=== PATIENT | female | born 1990 | race Caucasian/White ===

== ENCOUNTER 2020-06-22 11:43 | Emergency (ER) | payer MEDICAID ==
[~2020-06-22] VITALS: Ht 162.6 cm; Wt 47.6 kg
[2020-06-22 11:55] VITALS: BP 136/80
== END 2020-06-22 13:04 | disposition home or self-care (01) ==
LOC: ER 11:43
DX: S96.912A Strain of unspecified muscle and tendon at ankle and foot level, left foot, initial encounter (principal); X50.1XXA Overexertion from prolonged static or awkward postures, initial encounter; Y93.89 Activity, other specified; Y92.89 Other specified places as the place of occurrence of the external cause; Y99.8 Other external cause status
CPT/HCPCS: 73610; 73630

== ENCOUNTER 2021-01-10 18:44 | Emergency (ER) | payer MEDICAID ==
[~2021-01-10] VITALS: Ht 162.6 cm; Wt 49.9 kg
[2021-01-10 19:34] LABS: Basophils # (auto) 0.1 10 ^3/uL (0-0.2); Basophils % (auto) 0.4 % (0.0-2.0); Eosinophils # (auto) 0.1 10 ^3/uL (0-0.8); Eosinophils % (auto) 0.7 % (0.0-7.0); Hematocrit 45.2 % (36.0-46.0); Hemoglobin 15.6 g/dL (12.2-16.2); Lymphocytes # (auto) 4.3 10 ^3/uL (0.4-5.4); Lymphocytes % (auto) 31.3 % (10.0-50.0); Mean Corpuscular Hemoglobin 29.8 pg (28.0-32.0); Mean Corpuscular Hgb Conc. 34.6 g/dL (32.0-36.0); Monocytes # (auto) 0.9 10 ^3/uL (0-1.3); Monocytes % (auto) 6.4 % (0.0-12.0); Neutrophils # (auto) 8.5 10 ^3/uL (1.6-8.6); Neutrophils % (auto) 61.2 % (37.0-80.0); Nucleated Red Blood Cells % 0.2 %; Platelet Count (auto) 432 10^3/uL (140-450); Red Blood Cells 5.25 10^6/uL (4.0-5.20); Red Cell Distribution Width 13.3 % (11.8-14.3); White Blood Cell 13.9 10^3/uL (4.4-10.8)
[2021-01-10 19:44] LABS: Albumin 4.4 g/dL (3.4-5.0); Anion Gap 8 (5-15); Blood Urea Nitrogen 11 mg/dL (7-18); Calcium 9.6 mg/dL (8.5-10.1); Carbon Dioxide 24 mmol/L (21-32); Chloride 106 mmol/L (98-107); Glucose 87 mg/dL (74-106); Sodium 138 mmol/L (136-145)
[2021-01-10 19:49] LABS: Alkaline Phosphatase 116 U/L (45-117); BUN/Creatinine Ratio 15.7; GFR African American 126 mL/min; GFR Non-African American 104 mL/min
[2021-01-10 19:50] LABS: Alanine Aminotransferase 65 U/L (13-56); Aspartate Aminotransferase 36 U/L (15-37); Bilirubin, Total 0.2 mg/dL (0.2-1.0); Total Protein 9.5 g/dL (6.4-8.2)
[2021-01-11] MEDS ORDERED: IBUPROFEN 600 MG TAB PO ONE (01:15)
[2021-01-11 04:54] VITALS: BP 107/57
== END 2021-01-11 05:04 | disposition home or self-care (01) ==
LOC: ER 18:48
DX: R07.89 Other chest pain (principal)
CPT/HCPCS: 36415; 80053; 84484; 85025; 93005

== ENCOUNTER → 2021-12-11 | Emergency (ER) | payer MEDICAID ==
[~2021-12-11] VITALS: Ht 162.6 cm; Wt 59.0 kg
[~2021-12-11] MED LIST: SODIUM CHLORIDE 0.9% 1,000 ML IV ONE
[2021-12-11 20:01] LABS: Urine WBC None Seen /hpf (0 - 5)
[2021-12-11 20:09] LABS: Urine Bacteria NONE SEEN /hpf (None Seen); Urine Blood Negative /uL (Negative); Urine Specific Gravity 1.005 (1.001-1.035)
[2021-12-11 20:14] LABS: Anion Gap 10 (5-15); BUN/Creatinine Ratio 15.5; Blood Urea Nitrogen 13 mg/dL (7-18); Calcium 9.3 mg/dL (8.5-10.1); Carbon Dioxide 22 mmol/L (21-32); Chloride 110 mmol/L (98-107); GFR African American 101 mL/min; GFR Non-African American 84 mL/min; Glucose 92 mg/dL (74-106); Sodium 142 mmol/L (136-145)
[2021-12-11 20:17] LABS: Alanine Aminotransferase 35 U/L (13-56); Alkaline Phosphatase 110 U/L (45-117); Aspartate Aminotransferase 30 U/L (15-37); Bilirubin, Total 0.2 mg/dL (0.2-1.0); Total Protein 8.3 g/dL (6.4-8.2)
[2021-12-11 20:29] LABS: Basophils # (auto) 0.1 10 ^3/uL (0-0.2); Basophils % (auto) 0.5 % (0.0-2.0); Eosinophils # (auto) 0 10 ^3/uL (0-0.8); Eosinophils % (auto) 0.2 % (0.0-7.0); Hematocrit 42.4 % (36.0-46.0); Hemoglobin 14.3 g/dL (12.2-16.2); Lymphocytes # (auto) 3.5 10 ^3/uL (0.4-5.4); Lymphocytes % (auto) 25.4 % (10.0-50.0); Mean Corpuscular Hemoglobin 28.8 pg (28.0-32.0); Mean Corpuscular Hgb Conc. 33.7 g/dL (32.0-36.0); Mean Corpuscular Volume 85.5 fL (80.0-100.0); Monocytes # (auto) 0.7 10 ^3/uL (0-1.3); Monocytes % (auto) 5.4 % (0.0-12.0); Neutrophils # (auto) 9.4 10 ^3/uL (1.6-8.6); Neutrophils % (auto) 68.5 % (37.0-80.0); Nucleated Red Blood Cells % 0.1 %; Red Blood Cells 4.96 10^6/uL (4.0-5.20); Red Cell Distribution Width 12.8 % (11.8-14.3); White Blood Cell 13.7 10^3/uL (4.4-10.8)
[2021-12-11 22:01] VITALS: BP 109/64
== END | disposition home or self-care (01) ==
LOC: EDUNIT# 17:39 → EDBD 17:39 → ER 17:39
DX: E86.0 Dehydration (principal); M79.10 Myalgia, unspecified site; Z88.8 Allergy status to other drugs, medicaments and biological substances; Z91.018 Allergy to other foods
CPT/HCPCS: 36415; 70450; 80053; 81001; 85025

== ENCOUNTER 2021-12-23 19:19 | Emergency (ER) | payer MEDICAID ==
[~2021-12-23] VITALS: Ht 165.1 cm; Wt 47.6 kg
[2021-12-23 19:20] VITALS: BP 132/76
[2021-12-23 20:39] LABS: Urine Bacteria NONE SEEN /hpf (None Seen); Urine Blood Negative /uL (Negative); Urine Specific Gravity 1.007 (1.001-1.035); Urine WBC <1 /hpf (0 - 5)
== END 2021-12-24 02:34 | disposition left against medical advice (07) ==
LOC: ER 19:19 → EDBD 19:19 → ER 12-24 02:34
DX: M62.831 Muscle spasm of calf (principal)
CPT/HCPCS: 81001; 81025

== ENCOUNTER 2022-01-18 19:13 | Emergency (ER) | payer MEDICAID ==
[~2022-01-18] VITALS: Ht 162.6 cm; Wt 54.4 kg
[2022-01-18 19:48] VITALS: BP 128/71
[2022-01-18] MEDS ORDERED: COROSUS EACH EAR (19:53)
[2022-01-18] MEDS ORDERED: NEOMYCIN-POLYM-HC 1% OTIC(EAR) SOLN 10ML EACH EAR ONE (20:00)
== END 2022-01-19 02:24 | disposition left against medical advice (07) ==
LOC: ER 19:13
DX: H60.91 Unspecified otitis externa, right ear (principal); H57.13 Ocular pain, bilateral; J45.909 Unspecified asthma, uncomplicated; Z90.49 Acquired absence of other specified parts of digestive tract; Z79.899 Other long term (current) drug therapy; Z88.8 Allergy status to other drugs, medicaments and biological substances

== ENCOUNTER 2022-04-05 17:02 | Emergency (ER) | payer MEDICAID ==
[~2022-04-05] VITALS: Ht 162.6 cm; Wt 50.0 kg
[~2022-04-05 17:02] MED LIST changes: +COROSUS EACH EAR; -SODIUM CHLORIDE 0.9% 1,000 ML IV ONE
[2022-04-05 19:42] VITALS: BP 129/79
[2022-04-05] MEDS ORDERED: IBUP600T27 PO (22:44)
[2022-04-05] MEDS ORDERED: IBUP800T26 PO (22:59)
== END 2022-04-05 22:58 | disposition home or self-care (01) ==
LOC: ER 17:05
DX: S90.32XA Contusion of left foot, initial encounter (principal); J45.909 Unspecified asthma, uncomplicated; Z90.49 Acquired absence of other specified parts of digestive tract; Z79.899 Other long term (current) drug therapy; Z88.8 Allergy status to other drugs, medicaments and biological substances; Z91.018 Allergy to other foods; W18.39XA Other fall on same level, initial encounter; Y93.89 Activity, other specified; Y92.89 Other specified places as the place of occurrence of the external cause; Y99.8 Other external cause status
CPT/HCPCS: 73630

== ENCOUNTER 2022-04-20 13:55 | Emergency (ER) | payer MEDICAID ==
[~2022-04-20] VITALS: Ht 162.6 cm; Wt 55.0 kg
[~2022-04-20 13:55] MED LIST changes: +IBUP800T26 PO
[2022-04-20 14:59] VITALS: BP 154/64
[2022-04-20] MEDS ORDERED: AZIT250T8 PO (16:11)
[2022-04-20] MEDS ORDERED: PROM1SOL4 PO (16:11)
== END 2022-04-20 16:19 | disposition home or self-care (01) ==
LOC: EDBD 13:55 → ER 13:55
DX: J02.9 Acute pharyngitis, unspecified (principal); Z20.822 Contact with and (suspected) exposure to COVID-19
CPT/HCPCS: 36415

== ENCOUNTER 2022-11-18 10:03 | Emergency (ER) | payer MEDICAID ==
[~2022-11-18] VITALS: Ht 162.6 cm; Wt 54.5 kg
[~2022-11-18 10:03] MED LIST changes: +AZIT250T8 PO; +PROM1SOL4 PO
[2022-11-18 11:11] LABS: Basophils # (auto) 0.1 10 ^3/uL (0-0.2); Eosinophils # (auto) 0.2 10 ^3/uL (0-0.8); Eosinophils % (auto) 0.9 % (0.0-7.0)
[2022-11-18 11:13] LABS: Basophils % (auto) 0.3 % (0.0-2.0); Hemoglobin 13.9 g/dL (12.2-16.2); Lymphocytes # (auto) 3.6 10 ^3/uL (0.4-5.4); Lymphocytes % (auto) 18.8 % (10.0-50.0); Mean Corpuscular Hemoglobin 28.8 pg (28.0-32.0); Mean Corpuscular Hgb Conc. 33.1 g/dL (32.0-36.0); Mean Corpuscular Volume 86.8 fL (80.0-100.0); Monocytes # (auto) 1.4 10 ^3/uL (0-1.3); Monocytes % (auto) 7.5 % (0.0-12.0); Neutrophils # (auto) 13.8 10 ^3/uL (1.6-8.6); Neutrophils % (auto) 72.5 % (37.0-80.0); Nucleated Red Blood Cells % 0.1 %; Red Blood Cells 4.84 10^6/uL (4.0-5.20); Red Cell Distribution Width 13.3 % (11.8-14.3)
[2022-11-18] MEDS ORDERED: ACETAMINOPHEN 325 MG TAB PO ONE (11:15)
[2022-11-18] MEDS ORDERED: DexAMETHasone 4 MG TAB PO ONE (11:15)
[2022-11-18] MEDS ORDERED: IPRATROPIUM BROM 0.5 MG/2.5ML INH SOL NEB ONE (11:15)
[2022-11-18] MEDS ORDERED: ALBUTEROL SULF 2.5 MG/0.5ML(0.5%) NEB SOLN NEB ONE (11:15)
[2022-11-18 11:22] LABS: Potassium 3.4 mmol/L (3.5-5.1)
[2022-11-18 11:30] LABS: Albumin 3.8 g/dL (3.4-5.0); Bilirubin, Total 0.4 mg/dL (0.2-1.0); Calcium 9.5 mg/dL (8.5-10.1); Total Protein 8.1 g/dL (6.4-8.2)
[2022-11-18 14:15] LABS: Urine Bacteria NONE SEEN /hpf (None Seen); Urine Blood Negative /uL (Negative); Urine Specific Gravity 1.011 (1.001-1.035); Urine WBC <1 /hpf (0 - 5)
[2022-11-18 14:24] VITALS: BP 136/59
== END 2022-11-18 14:32 | disposition home or self-care (01) ==
LOC: ER 10:03
DX: B34.9 Viral infection, unspecified (principal); D72.829 Elevated white blood cell count, unspecified; D75.839 Thrombocytosis, unspecified; R06.02 Shortness of breath; R07.89 Other chest pain; J45.909 Unspecified asthma, uncomplicated; Z90.49 Acquired absence of other specified parts of digestive tract
CPT/HCPCS: 36415; 71045; 80053; 81001; 84484; 85025; 93005; 94640; 99285; J7644

== ENCOUNTER 2022-12-20 17:36 | Emergency (ER) | payer MEDICAID ==
[~2022-12-20] VITALS: Ht 162.6 cm; Wt 54.5 kg
[2022-12-20] MEDS ORDERED: traMADol HCL 50 MG TAB PO ONE (18:00)
[2022-12-20] MEDS ORDERED: BACDST PO (20:23)
[2022-12-21 00:15] VITALS: BP 133/73
== END 2022-12-20 20:23 | disposition home or self-care (01) ==
LOC: ER 17:36 → EDBD 17:36 → EDUNIT# 17:36 → ER 20:23
DX: L03.115 Cellulitis of right lower limb (principal); J45.909 Unspecified asthma, uncomplicated; Z88.1 Allergy status to other antibiotic agents
CPT/HCPCS: 93971

== ENCOUNTER 2023-01-11 16:26 | Emergency (ER) | payer MEDICAID ==
[~2023-01-11] VITALS: Ht 167.6 cm; Wt 60.0 kg
[~2023-01-11 16:26] MED LIST changes: +AZIT-81 PO; -AZIT250T8 PO; +BACDST PO; +IBUP-1455 PO; -IBUP800T26 PO
[2023-01-11 19:21] VITALS: BP 119/64
== END 2023-01-11 21:12 | disposition home or self-care (01) ==
LOC: ER 16:26 → EDBD 16:26 → ER 21:12
DX: M79.661 Pain in right lower leg (principal); F41.9 Anxiety disorder, unspecified; J45.909 Unspecified asthma, uncomplicated; Z90.89 Acquired absence of other organs; Z88.8 Allergy status to other drugs, medicaments and biological substances; Z88.7 Allergy status to serum and vaccine

== ENCOUNTER 2023-09-02 14:50 | Emergency (ER) | payer MEDICAID ==
[~2023-09-02] VITALS: Ht 162.6 cm; Wt 52.0 kg
[2023-09-02 15:32] LABS: Urine Epithelial Cast None Seen /hpf (<5)
[2023-09-02 15:47] LABS: Urine Bacteria NONE SEEN /hpf (None Seen); Urine Blood Negative /uL (Negative); Urine Clarity Clear (Clear); Urine Color Colorless (Yellow); Urine Protein, UAD Negative (Negative); Urine Specific Gravity 1.004 (1.001-1.035); Urine Urobilinogen Normal (Negative); Urine WBC <1 /hpf (0 - 5); Urine pH 6.5 (5.0-8.0)
[2023-09-02 16:08] LABS: Basophils # (auto) 0.1 10 ^3/uL (0-0.2); Basophils % (auto) 1.2 % (0.0-2.0); Eosinophils # (auto) 0.2 10 ^3/uL (0-0.8); Eosinophils % (auto) 1.5 % (0.0-7.0); Hematocrit 44.4 % (36.0-46.0); Hemoglobin 14.8 g/dL (12.2-16.2); Mean Corpuscular Hemoglobin 28.8 pg (28.0-32.0); Mean Corpuscular Hgb Conc. 33.5 g/dL (32.0-36.0); Mean Corpuscular Volume 86.1 fL (80.0-100.0); Monocytes # (auto) 0.7 10 ^3/uL (0-1.3); Monocytes % (auto) 5.9 % (0.0-12.0); Neutrophils # (auto) 7.1 10 ^3/uL (1.6-8.6); Neutrophils % (auto) 58.4 % (37.0-80.0); Nucleated Red Blood Cells % 0.2 %; Red Blood Cells 5.15 10^6/uL (4.0-5.20); White Blood Cell 12.2 10^3/uL (4.4-10.8)
[2023-09-02 16:23] LABS: Alanine Aminotransferase 34 U/L (7-40); Albumin 4.8 g/dL (3.2-4.8); Alkaline Phosphatase 97 U/L (46-116); Anion Gap 7 (5-15); Aspartate Aminotransferase 26 U/L (13-40); BUN/Creatinine Ratio 12.5 (10.0-20.0); Bilirubin, Total 0.2 mg/dL (0.2-1.0); Blood Urea Nitrogen 9 mg/dL (9-23); Calcium 9.6 mg/dL (8.7-10.4); Carbon Dioxide 25 mmol/L (20-30); Chloride 108 mmol/L (98-107); Glucose 86 mg/dL (74-106); Lipase 48 U/L (12-53); Potassium 4.2 mmol/L (3.5-5.1); Sodium 140 mmol/L (136-145); Total Protein 8.2 g/dL (5.7-8.2)
[2023-09-02 17:40] VITALS: BP 110/50; PULSE 80; RESP 18; TEMP 98.6; O2SAT 98
== END 2023-09-02 17:42 | disposition home or self-care (01) ==
LOC: ER 14:50
DX: R10.84 Generalized abdominal pain (principal); R11.0 Nausea; J45.909 Unspecified asthma, uncomplicated; Z90.49 Acquired absence of other specified parts of digestive tract; Z79.2 Long term (current) use of antibiotics; Z79.899 Other long term (current) drug therapy; Z88.8 Allergy status to other drugs, medicaments and biological substances
CPT/HCPCS: 36415; 74176; 80053; 81001; 83690; 85025

== ENCOUNTER 2023-10-08 16:15 | Emergency (ER) | payer MEDICAID ==
[~2023-10-08] VITALS: Ht 154.9 cm; Wt 54.0 kg
[2023-10-08] MEDS: IBUPROFEN 800 MG TAB PO ONE (20:27)
[2023-10-08 20:35] VITALS: BP 114/68; PULSE 77; RESP 16; TEMP 98.2; O2SAT 99
== END 2023-10-08 20:35 | disposition home or self-care (01) ==
LOC: ER 16:15
DX: M26.621 Arthralgia of right temporomandibular joint (principal); R07.89 Other chest pain; J45.909 Unspecified asthma, uncomplicated; Z90.49 Acquired absence of other specified parts of digestive tract; Z79.1 Long term (current) use of non-steroidal anti-inflammatories (NSAID); Z79.2 Long term (current) use of antibiotics; Z79.899 Other long term (current) drug therapy; Z88.8 Allergy status to other drugs, medicaments and biological substances
CPT/HCPCS: 70110; 71045

== ENCOUNTER 2023-10-15 01:23 | Emergency (ER) | payer MEDICAID ==
[~2023-10-15] VITALS: Ht 162.6 cm; Wt 54.4 kg
[2023-10-15 01:31] VITALS: BP 135/78; PULSE 110; RESP 18; O2SAT 96
[2023-10-15] MEDS ORDERED: ONDANSETRON ODT 4 MG TAB PO ONE (02:00)
[2023-10-15] MEDS ORDERED: ZOFR4T PO (02:22)
== END 2023-10-15 03:35 | disposition home or self-care (01) ==
LOC: ER 01:23 → EDBD 01:23 → ER 03:33
DX: R11.2 Nausea with vomiting, unspecified (principal); J45.909 Unspecified asthma, uncomplicated; R51.9 Headache, unspecified; Z88.6 Allergy status to analgesic agent

== ENCOUNTER 2023-10-22 14:43 | Emergency (ER) | payer MEDICAID ==
[~2023-10-22] VITALS: Ht 162.6 cm; Wt 54.5 kg
[~2023-10-22 14:43] MED LIST changes: +ZOFR4T PO
[2023-10-22 19:34] VITALS: BP 116/57; PULSE 84; RESP 17; TEMP 97.9; O2SAT 98
== END 2023-10-22 19:35 | disposition home or self-care (01) ==
LOC: ER 14:43
DX: F41.9 Anxiety disorder, unspecified (principal); R73.9 Hyperglycemia, unspecified; J45.909 Unspecified asthma, uncomplicated; Z88.8 Allergy status to other drugs, medicaments and biological substances
CPT/HCPCS: 82962